=== PATIENT | female | born 1950 | race Asian ===

== ENCOUNTER 2017-06-25 09:40 | Outpatient (CLI) | payer OTHER ==
[2017-06-25 10:23] LABS: POTASSIUM 4.9 mmol/L (3.6-5.2)
== END 2017-06-25 18:59 | disposition home or self-care (01) ==
LOC: LABW 09:40
PROVIDERS: Colon & Rectal Surgery
DX: Z01.818 Encounter for other preprocedural examination (principal)
CPT/HCPCS: 36415; 80048

== ENCOUNTER 2020-10-30 13:43 | Outpatient (CLI) | payer OTHER | END 2020-10-30 22:20 | disposition home or self-care (01) | LOC: INF 13:43 | PROVIDERS: ATTEND Internal Medicine | DX: Z23 Encounter for immunization (principal) | CPT/HCPCS: 96372 ==

== ENCOUNTER 2020-11-21 13:35 | Outpatient (CLI) | payer OTHER | END 2020-11-21 22:23 | disposition home or self-care (01) | LOC: INF 13:35 | PROVIDERS: ATTEND Internal Medicine | DX: Z23 Encounter for immunization (principal) | CPT/HCPCS: 96372 ==

== ENCOUNTER 2021-09-24 11:23 | Day surgery (SDC) | payer OTHER | END 2021-09-24 14:10 | disposition home or self-care (01) | LOC: OR 11:23 | PROVIDERS: ATTEND Internal Medicine Gastroenterology | PROC: 0DB68ZZ Excision of Stomach, Via Natural or Artificial Opening Endoscopic (ICD-10-PCS; principal; 2021-09-24) | PROC: 0D738ZZ Dilation of Lower Esophagus, Via Natural or Artificial Opening Endoscopic (ICD-10-PCS; 2021-09-24) | PROC: 0DB88ZZ Excision of Small Intestine, Via Natural or Artificial Opening Endoscopic (ICD-10-PCS; 2021-09-24) | DX: K25.9 Gastric ulcer, unspecified as acute or chronic, without hemorrhage or perforation (principal); K29.50 Unspecified chronic gastritis without bleeding; K31.A11 Gastric intestinal metaplasia without dysplasia, involving the antrum; K21.00 Gastro-esophageal reflux disease with esophagitis, without bleeding; K22.10 Ulcer of esophagus without bleeding; K22.2 Esophageal obstruction; R10.13 Epigastric pain; R10.12 Left upper quadrant pain; Z20.822 Contact with and (suspected) exposure to COVID-19 | CPT/HCPCS: 87635; U0003 ==